=== PATIENT | female | born 1985 ===

== ENCOUNTER 2023-06-14 08:26 | Day surgery (SDC) | payer OTHER | END 2023-06-14 15:45 | disposition home or self-care (01) | LOC: AMB-ENDOS 08:26 | PROVIDERS: ATTEND Colon & Rectal Surgery | DX: K57.30 Diverticulosis of large intestine without perforation or abscess without bleeding (principal); K57.32 Diverticulitis of large intestine without perforation or abscess without bleeding; R10.32 Left lower quadrant pain; Z20.822 Contact with and (suspected) exposure to COVID-19 ==